=== PATIENT | male | born 1965 | race Caucasian/White ===

== ENCOUNTER 2025-07-21 09:22 | Outpatient (CLI) | payer OTHER | END 2025-07-21 09:23 | disposition home or self-care (01) | LOC: CSHSLEEP 09:22 | PROVIDERS: ATTEND Internal Medicine | DX: G47.33 Obstructive sleep apnea (adult) (pediatric) (principal); E11.9 Type 2 diabetes mellitus without complications; I10 Essential (primary) hypertension; G47.61 Periodic limb movement disorder | CPT/HCPCS: 95811 ==